=== PATIENT | female | born 2000 | race Caucasian/White ===

== ENCOUNTER 2023-11-04 18:32 | Emergency (ER) | payer OTHER, SELFPAY ==
[2023-11-04 18:34] VITALS: BP 121/83; PULSE 70; RESP 16; TEMP 36.2; O2SAT 97; BMI 23.3
[2023-11-04 18:55] VITALS: TEMP 37; O2SAT 98
[2023-11-04 19:34] VITALS: BP 121/83; PULSE 72; RESP 16; TEMP 36.8; O2SAT 98
[2023-11-04] MEDS: Acetaminophen 500 MG Tablet 1000 MG PO (19:36)
--- NOTE | 2023-11-04 20:52 | EDS_ITS ---
HPI History of Present Illness Chief Complaint: Head Injury Informant: patient Narrative Narrative: 23-year-old female states that last night at work she bent over striking the right side of her head on a piece of metal. No reported loss of consciousness. She notes some associated nausea that has resolved. She notes persistent headache and intermittent dizziness as well as fatigue. No vomiting. No arm or leg or speech symptoms. No pain changes. States she has had prior concussion and this seems like similar. PFSH PFSH Medical History no medical history Home Medications ?Medication ?Instructions ?Recorded ?Last Taken ?Type NK 11/04/23 Unknown History Allergy/AdvReac Type Severity Reaction Status Date / Time cefdinir (From [employer]) Allergy Mild Hives Verified 11/04/23 18:33 Family History no significant family his Surgical History no surgical history Social History Smoking Status: Never smoker ROS ROS ED Constitutional Constitutional ED: Denies chills, fever(s) or weight loss Eyes Eyes: Denies blurry vision, change in vision or diplopia ENT ENT ED: Denies ear pain, rhinorrhea or sore throat Cardiovascular Cardiovascular: Denies chest pain, orthopnea, palpitations or racing heartbeat Respiratory/Chest Respiratory/Chest: Denies cough, dyspnea or orthopnea Gastrointestinal Gastrointestinal: Reports nausea; Denies abdominal pain, diarrhea or vomiting Genitourinary Genitourinary ED: Denies dysuria, hematuria or urinary frequency Musculoskeletal Musculoskeletal: Denies arthralgias, myalgias or neck pain Integumentary Denies abscess or rash Neurologic Neurologic: Reports headache(s); Denies paresthesias or weakness Psychiatric Psychiatric: Denies anxiety, depression, suicidal ideation or suicidal thoughts Endocrine Endocrinology: Denies polydipsia, polyphagia or polyuria Allergic/Immunologic Allergic/Immunologic ED: Denies mouth swelling, tongue swelling or urticaria EXAM Physical Exam Const Vital Signs: 11/04/23 18:34 11/04/23 18:55 11/04/23 19:34 Temperature 97.2 F L 98.6 F 98.2 F Temperature Source Temporal Pulse Rate 70 72 Respiratory Rate 16 16 Respiratory Effort Normal Non-Labored Respiratory Depth Normal Respiratory Pattern Normal Blood Pressure 121/83 H 121/83 H Blood Pressure Mean 95 95 Pulse Ox 97 98 98 Oxygen Delivery Method Room Air Room Air Positive well nourished and well developed General Appearance ED: well developed HEENT Reports normocephalic, head/scalp atraumatic, TM's clear and moist mucous membranes Tympanic Membrane ED: Yes TM's clear Eyes PERRL and EOMs intact bilaterally Neck no lymphadenopathy, supple and no JVD Resp normal respiratory effort and clear to auscultation bilaterally Cardio regular rate, regular rhythm and no murmurs GI normal to inspection, nondistended, normoactive bowel sounds and non-tender Palpation: soft Back/Spine no CVA tenderness and normal ROM Extremity normal to inspection General Extremety ED: Negative for edema General Extremity: Negative for edema Neuro oriented x3 and CN's II-XII intact bilaterally Sensorium / Orientation: alert Motor Exam: strength 5/5 throughout Psych mental status grossly normal Mood & Affect: Negative for depressed or tearful Skin no rashes or lesions noted and no wounds MDM MDM MDM Narrative Medical decision making narrative: Differential diagnosis includes but not limited to concussion intracranial hemorrhage hematoma skull fracture Based on the history and the physical the patient most likely has a concussion. I do not believe that advanced imaging is needed. She was given a dose of Tylenol. Work restrictions will be given. [facility] with [facility]. History & Record Review Discussion w/independent historian: Patient Discharge Plan Triage Chief Complaint: Head Injury ED Provider: Chidi Main Dx/Rx/DC Orders Clinical Impression: Concussion, Headache Instructions: ED Concussion Prescriptions: No Action NK Primary Care Provider: ANTWAN MORGAN Referrals: [facility] [Non-Staff] - As soon as possible Print Language: Djib[place]ian Disposition Disposition: Home, Self Care Discharge Date/Time: 11/04/23 19:51
== END 2023-11-04 19:51 | disposition home or self-care (01) ==
PROVIDERS: Emergency Provider Emergency Medicine; Visit Provider Emergency Medicine
DX: S06.0X0A Concussion without loss of consciousness, initial encounter (principal); W22.09XA Striking against other stationary object, initial encounter; Y99.0 Civilian activity done for income or pay
CPT/HCPCS: 99282

== ENCOUNTER 2024-05-30 17:38 | Emergency (ER) | payer OTHER, SELFPAY ==
[2024-05-30 17:39] VITALS: BP 107/87; PULSE 86; RESP 15; TEMP 36; O2SAT 99; BMI 21.7
--- NOTE | 2024-05-30 18:58 | EX.ED.GENINJ ---
HPI History of Present Illness Chief Complaint: Head Injury Informant: patient Narrative Narrative: 24-year-old female was getting ready for work today when she bent over hit her head close hanging bar closet. No loss of consciousness but she does note a small amount of swelling at the top of her scalp. She notes some sound sensitivity and some intermittent vision disturbance. She also notes intermittent dizziness if she moves too well. She has had about 4 prior concussions. Not take any blood thinners. No seizure activity. She denies any other injury. She has had intermittent nausea but no vomiting. PFSH PFSH Medical History no medical history Home Medications ?Medication ?Instructions ?Recorded ?Last Taken ?Type norethindrone 1 mg-ethinyl 1 tab PO DAILY 05/30/24 Unknown History estradiol 20 mcg (24)-iron 75 mg (4) tablet (Sathish 24 Fe) Allergy/AdvReac Type Severity Reaction Status Date / Time cefdinir (From [employer]) Allergy Mild Hives Verified 05/30/24 17:39 Family History no significant family his Surgical History no surgical history Social History Smoking Status: Never smoker ROS ROS ED ROS Narrative Intermittent dizziness with movement Constitutional Constitutional ED: Denies chills, fever(s) or weight loss Eyes Eyes: Denies change in vision or diplopia ENT ENT ED: Denies ear pain, rhinorrhea or sore throat Cardiovascular Cardiovascular: Denies chest pain, orthopnea, palpitations or racing heartbeat Respiratory/Chest Respiratory/Chest: Denies cough, dyspnea or orthopnea Gastrointestinal Gastrointestinal: Reports nausea; Denies abdominal pain, diarrhea or vomiting Genitourinary Genitourinary ED: Denies dysuria, hematuria or urinary frequency Musculoskeletal Musculoskeletal: Denies arthralgias, myalgias or neck pain Integumentary Reports other Details: Contusion/hematoma of scalp ; Denies abscess or rash Neurologic Neurologic: Reports headache(s); Denies paresthesias or weakness Psychiatric Psychiatric: Denies anxiety, depression, suicidal ideation or suicidal thoughts Endocrine Endocrinology: Denies polydipsia, polyphagia or polyuria Allergic/Immunologic Allergic/Immunologic ED: Denies mouth swelling, tongue swelling or urticaria EXAM Physical Exam Const Vital Signs: 05/30/24 17:39 05/30/24 18:16 Temperature 96.8 F L Temperature Source Temporal Pulse Rate 86 Respiratory Rate 15 Respiratory Effort Normal Respiratory Depth Normal Respiratory Pattern Normal Blood Pressure 107/87 H Blood Pressure Mean 93 Pulse Ox 99 Oxygen Delivery Method Room Air Room Air Positive well nourished and well developed General Appearance ED: well developed and NAD HEENT Reports normocephalic, head/scalp atraumatic and moist mucous membranes Eyes PERRL and EOMs intact bilaterally Neck no lymphadenopathy, supple and no JVD Resp normal respiratory effort and clear to auscultation bilaterally Cardio regular rate, regular rhythm and no murmurs GI normal to inspection, nondistended, normoactive bowel sounds and non-tender Palpation: soft Back/Spine no CVA tenderness and normal ROM Extremity normal to inspection General Extremety ED: Negative for edema General Extremity: Negative for edema Neuro oriented x3 and CN's II-XII intact bilaterally Sensorium / Orientation: alert Motor Exam: strength 5/5 throughout Psych mental status grossly normal Mood & Affect: Negative for depressed or tearful Skin no rashes or lesions noted and no wounds MDM MDM MDM Narrative Medical decision making narrative: Differential diagnosis includes but not limited to skull fracture intracranial hemorrhage concussion contusion hematoma headache Clinically I think the patient most likely has a concussion. I do not believe advanced imaging is needed at this time based on the mechanism of injury and the current symptomology. Would recommend 24-hour period of rest if possible. No strenuous activity. Tylenol for headache. Would recommend PCP follow-up in 1 week if not improving. She does note her PCP is in the [place] today she does not have one locally. We can refer her to no doc on-call. History & Record Review Discussion w/independent historian: Patient Additional record(s) reviewed:: Prior ED visit Discharge Plan Triage Chief Complaint: Head Injury ED Provider: Chiid Main Dx/Rx/DC Orders Clinical Impression: Concussion Instructions: ED Concussion Prescriptions: No Action Sathish 24 Fe 1 mg-20 mcg (24)/75 mg (4) tablet 1 tab PO DAILY Primary Care Provider: Rusty Brizuela Referrals: Stephen Garcia MD [Med Staff - Client Support Manager] - 1 Week if not improving Rusty Brizuela, DO [Primary Care Provider] - Print Language: Mongolian Disposition Disposition: Home, Self Care
[2024-05-30 19:00] VITALS: BP 107/87; PULSE 86; RESP 15; TEMP 36; O2SAT 99
== END 2024-05-30 19:17 | disposition home or self-care (01) ==
LOC: ED 19:08
PROVIDERS: Emergency Provider Emergency Medicine; PCP Family Medicine; Visit Provider Emergency Medicine
DX: S06.0X0A Concussion without loss of consciousness, initial encounter (principal); W22.09XA Striking against other stationary object, initial encounter
CPT/HCPCS: 99282